=== PATIENT | female | born 1935 | race Caucasian/White ===

== ENCOUNTER → 2017-06-20 | Outpatient (CLI) | payer OTHER, BC | LOC: FIMAGING 10:14 | PROVIDERS: ATTEND Internal Medicine Gastroenterology | DX: Z13.820 Encounter for screening for osteoporosis (principal); K50.10 Crohn's disease of large intestine without complications; Z85.3 Personal history of malignant neoplasm of breast ==

== ENCOUNTER → 2017-11-10 | Outpatient (CLI) | payer OTHER, BC | LOC: BMCIMAGING 12:17 | PROVIDERS: ATTEND Family Medicine | DX: Z12.31 Encounter for screening mammogram for malignant neoplasm of breast (principal); Z85.3 Personal history of malignant neoplasm of breast ==

== ENCOUNTER → 2018-11-13 | Outpatient (CLI) | payer OTHER, BC | LOC: BMCIMAGING 12:58 | PROVIDERS: ATTEND Family Medicine | DX: Z12.31 Encounter for screening mammogram for malignant neoplasm of breast (principal); Z85.3 Personal history of malignant neoplasm of breast; Z90.12 Acquired absence of left breast and nipple ==

== ENCOUNTER → 2018-11-26 | Outpatient (CLI) | payer OTHER, BC | LOC: BMCIMAGING 09:37 | PROVIDERS: ATTEND Family Medicine | DX: R92.8 Other abnormal and inconclusive findings on diagnostic imaging of breast (principal) ==

== ENCOUNTER → 2018-12-18 | Day surgery (SDC) | payer OTHER, BC | LOC: FIMAGING 07:16 ==

== ENCOUNTER → 2019-02-11 | Outpatient (CLI) | payer OTHER, BC | LOC: FIMAGING 12:40 | PROVIDERS: ATTEND Family Medicine | DX: Z98.890 Other specified postprocedural states (principal) ==